=== PATIENT | male | born 1955 | race Caucasian/White ===

== ENCOUNTER 2020-03-17 02:49 | Emergency (ER) | payer OTHER ==
[~2020-03-17] VITALS: Ht 167.6 cm; Wt 83.2 kg
[2020-03-17] MEDS ORDERED: TAMSULOSIN0.4 MG PO (04:23)
[2020-03-17] MEDS ORDERED: KEFLEX500 M1 PO (05:54)
[2020-03-17 06:15] VITALS: BP 142/82
== END 2020-03-17 06:15 | DRG 605 ==
LOC: ED 02:49
DX: S11.93XA Puncture wound without foreign body of unspecified part of neck, initial encounter (principal); S41.032A Puncture wound without foreign body of left shoulder, initial encounter; X99.9XXA Assault by unspecified sharp object, initial encounter; Y92.149 Unspecified place in prison as the place of occurrence of the external cause; Z20.822 Contact with and (suspected) exposure to COVID-19